=== PATIENT | female | born 1980 | race Caucasian/White ===

== ENCOUNTER 2017-03-26 19:28 | Inpatient (IN) ==
[2017-03-26] MEDS ORDERED: Naloxone 0.4 MG/ML INJ IVP PRN (23:01)
[2017-03-26] MEDS ORDERED: Acetaminophen 325 MG TABLET PO PRN (23:01)
[2017-03-26] MEDS ORDERED: *HR* Morphine 2 MG/ML SYRINGE IVP PRN (23:01)
[2017-03-26] MEDS ORDERED: *HR* HYDROcodone/Acet 5/325 mg TABLET PO PRN (23:01)
[2017-03-26] MEDS ORDERED: Heparin 25,000 UNIT/500 ML D5W 25,000 UNIT/500 ML MLS IVC SCH (23:45)
[2017-03-26] MEDS ORDERED: Nitroglycerin 25 MG/250 ML INFUS..BTL IVC SCH (23:45)
[2017-03-26] MEDS ORDERED: *HR* Heparin 5,000 UNIT/ML VIAL IVP PRN ×2 (23:51)
[2017-03-26] MEDS ORDERED: *HR* Heparin 5,000 UNIT/ML VIAL IVP ONE (23:51)
[2017-03-27] MEDS: *HR* Promethazine 25 MG/ML VIAL IVP PRN ×2 (02:01→10:13)
[2017-03-27] MEDS ORDERED: *HR* LORazepam 2 MG/ML VIAL IVP ONE (02:34)
[2017-03-27 03:15] LABS: Activated Partial Thrombo Time 26.1 Seconds (26.0-36.0); Prothrombin Time 10.3 Seconds (9.4-12.1)
[2017-03-27 03:16] LABS: Hematocrit 33.7 % (35.3-44.9); Immature Platelets 23.3 % (1.1-6.1); Mean Corpuscular HGB Conc 32.6 g/dL (31.6-35.5); Mean Corpuscular Hemoglobin 25.9 pg (28.0-33.3); Mean Corpuscular Volume 79.3 fL (83.0-100.0); Mean Platelet Volume 13.7 fL (9.4-12.4); Red Blood Count 4.25 M/mcL (3.82-4.97); Red Cell Distribution Width 15.1 % (11.5-14.5)
--- NOTE | 2017-03-27 04:48 | Internal Med History&Physical ---
Date of Encounter: 03/27/17 Time of Encounter: 04:46 Assessment and Plan (1) Accelerated hypertension Current visit: Yes Status: Acute Patient has significant hypertension. Likely related to being out of her medicines medications. She is having some headaches. There are no acute neurologic deficits. We will put the patient on nitro drip and titrate it to achieve better blood pressure control. Patient is unsure what medicines she takes for blood pressure. Pharmacy will need to be contacted for a complete medical list. (2) Non-STEMI (non-ST elevated myocardial infarction) Current visit: Yes Status: Acute Mild elevation in troponin, likely due to hypertension. Patient does have significant lower extremity edema and there is a concern for myocardial ischemia. We will obtain an echo. Patient is in place on heparin drip. Patient is allergic to aspirin. We will start statin. (3) Anxiety Current visit: Yes Status: Acute Patient reports significant anxiety. This may be contributing to her chest pain symptoms. We will treat with Ativan 1 mg IV every 4. (4) Type 2 diabetes mellitus Current visit: Yes Status: Acute Patient reports insulin-dependent diabetes. Most recent hemoglobin A1c was 7.1 on February 24. Patient is unsure of her insulin regimen. Given that the patient is nothing by mouth we will hold off on any insulin at this time until we were able to confirm her insulin doses with the pharmacy. Qualifiers: Diabetes mellitus complication status: with hyperglycemia Diabetes mellitus prison insulin use: with prison use Qualified Code(s): E11.65 - Type 2 diabetes mellitus with hyperglycemia; Z79.4 - supervisor intermediates (current) use of insulin (5) DVT prophylaxis Current visit: Yes Status: Acute Patient is currently on a heparin drip Internal Medicine - H&P: HPI Chief complaint: Chest Pain Admitted From: Emergency Dept Plans for Post Hospital Care: Home History of present illness: Ms. Lopez is a 37 year old female with history of hypertension who presents with chest pain. Patient states her chest pain started today. Patient describes the pain like a "punched in the chest". She states her chest pain is exacerbated by anxiety and stress which she has been under a lot of recently. Her chest pain does not radiate. She has had similar symptoms a few years ago and she is at [facility]. She had a heart cath at that time which was normal. She also reports occasional shortness of breath. Shortness of breath does not appear to be associated with her chest pain. Patient also reports significant lower extremity edema that has developed over the last several weeks. Patient reports an extensive positive review of systems including reporting fever, chills, cough, nausea, vomiting, diarrhea, hematemesis, hemoptysis, abdominal pain, dysuria. Past Med Surg Social Fam HX - Past Medical History Medical history: diabetes, hypertension Psychiatric history: anxiety, depression - Past Surgical History Surgical History: , other - Social History Smoking Status: Former smoker Smokeless Tobacco Status: No Alcohol use: none Drug use: none - Family History Father Living Status: Still Living Hx Family Cardiac Disorders: Yes (htn) Hx Family Respiratory Disorders: Yes (Copd) Hx Family Cancer: Yes Hx Family GI Disorders: No Hx Family Genitourinary Disorders: No Hx Family Endocrine Disorder: Yes (DM) Hx Family Musculoskeletal Disorders: No Hx Family Neuromuscular Disorders: No Hx Family Neurologic Disorders: No Hx Family HEENT Disorders: No Hx Family Autoimmune Disorders: No Hx Family Reproductive Disorders: No Hx Family Psychosocial Disorders: No Hx Family Medical Disorders: No Mother Living Status: Hx Family Cardiac Disorders: Yes Hx Family Respiratory Disorders: Yes Hx Family Cancer: No Hx Family GI Disorders: No Hx Family Genitourinary Disorders: No Hx Family Endocrine Disorder: Yes Hx Family Musculoskeletal Disorders: No Hx Family Neuromuscular Disorders: No Hx Family Neurologic Disorders: No Hx Family HEENT Disorders: No Hx Family Autoimmune Disorders: No Hx Family Reproductive Disorders: No Hx Family Psychosocial Disorders: No Hx Family Medical Disorders: No Sister Living Status: Still Living Hx Family Cardiac Disorders: No Hx Family Respiratory Disorders: Yes (copd) Hx Family Cancer: No Hx Family GI Disorders: No Hx Family Genitourinary Disorders: No Hx Family Endocrine Disorder: Yes Hx Family Musculoskeletal Disorders: No Hx Family Neuromuscular Disorders: No Hx Family Neurologic Disorders: No Hx Family HEENT Disorders: No Hx Family Autoimmune Disorders: No Hx Family Reproductive Disorders: No Hx Family Psychosocial Disorders: No Hx Family Medical Disorders: No Internal Medicine - H&P: Meds No Known Home Drugs 03/21/17 [History] Allergies aspirin [ASA] Allergy (Verified 03/12/17 21:11) Rash All Systems PM: A 10-system review of systems was performed and is negative for pertinent findings except as documented above in the HPI. - Constitutional Constitutional: chills, fever(s), weakness - EENT Eyes: blurry vision Nose, mouth and throat: sinus pain, sinus pressure, sore throat - Cardiovascular Cardiovascular ROS IM: chest pain, dyspnea, edema, syncope, no palpitations - Respiratory Respiratory: cough, dyspnea, hemoptysis, chest congestion, excessive phlegm production, change in phlegm color - Gastrointestinal Gastrointestinal: abdominal pain, diarrhea, hematemesis, nausea, vomiting - Genitourinary Genitourinary: dysuria, no urinary frequency, no urinary hesitancy, no urinary incontinence, no urinary urgency - Musculoskeletal Musculoskeletal ROS IM: numbness, tingling - Neurological Neurological ROS: weakness, no dizziness - Psychiatric Psychiatric: anxiety, panic attacks - Hematologic/Lymphatic Hematologic/Lymphatic: no easy bleeding, no easy bruising - Constitutional Vitals: Temp Pulse Resp BP Pulse Ox 97.7 F 97 20 190/118 99 03/26/17 22:30 03/26/17 22:30 03/26/17 22:30 03/26/17 22:30 03/26/17 22:30 General appearance: Present: A&O X 3, morbidly obese, no acute distress - Head Head exam: Present: atraumatic, normal inspection, normocephalic - Eye Eye exam: Present: EOMI, PERRL - ENT ENT exam: Present: mucous membranes moist, normal oropharynx - Respiratory Respiratory exam: Present: CTAB. Absent: rales, rhonchi, wheezes - Cardiovascular Cardiovascular exam: Present: RRR. Absent: gallop, JVD, rubs, systolic murmur - GI/Abdominal GI/Abdominal exam: Present: normal bowel sounds, soft. Absent: distended, tenderness - Extremities Exam Extremities exam: Present: calf tenderness, pedal edema (2+ pitting edema bilaterally.), warm. Absent: tenderness - Neurological Exam Neurological exam: Present: alert, CN II-XII intact, oriented X3, no focal deficits - Psychiatric Psychiatric exam: Present: anxious Internal Med - H&P Results - Labs CBC & Chem 7: 03/27/17 00:50 Labs: Short CBC 03/27/17 Range/Units 00:50 WBC 14.9 H (4.3-11.1) K/mcL Hgb 11.0 L (11.5-15.4) g/dL Hct 33.7 L (35.3-44.9) % Plt Count 152 (140-400) K/mcL Cardiac Enzymes 03/27/17 Range/Units 00:50 Troponin I 0.12 H* (0-0.03) ng/mL
[2017-03-27 06:25] LABS: BUN/Creatinine Ratio 14 (6-26); Blood Urea Nitrogen 13 mg/dL (7-20); Calcium 8.6 mg/dL (8.6-10.8); Carbon Dioxide 18 mEq/L (19-29); Chloride 109 mEq/L (98-109); Chol/HDL Ratio 5.6 (0-4.9); Cholesterol 324 mg/dL (< 200); Glucose 138 mg/dL (70-99); HDL Cholesterol 58 mg/dL (40-59); LDL Cholesterol,Calculated 186 mg/dL (0-99); Magnesium 1.8 mg/dL (1.6-2.6); Osmolality,Calculated 288 (280-300); Potassium 3.9 mEq/L (3.5-4.5); Sodium 138 mEq/L (136-145); Triglycerides 399 mg/dL (< 150); eGFR For African Americans > 60 (> 60); eGFR For Non-African Americans > 60 (> 60)
[2017-03-27] MEDS ORDERED: Pantoprazole 40 MG VIAL IVP SCH (06:30)
[2017-03-27 07:17] LABS: Basophils # 0.1 K/mcL (0.0-0.2); Basophils % 0.4 %; Eosinophils # 0.2 K/mcL (0.0-0.6); Eosinophils % 1.2 %; Hematocrit 32.7 % (35.3-44.9); Immature Granulocytes % 0.4 % (0-4); Lymphocytes # 3.2 K/mcL (0.6-4.6); Lymphocytes % 23.9 %; Mean Corpuscular HGB Conc 33.6 g/dL (31.6-35.5); Mean Corpuscular Hemoglobin 26.7 pg (28.0-33.3); Mean Corpuscular Volume 79.4 fL (83.0-100.0); Mean Platelet Volume 14.2 fL (9.4-12.4); Monocytes # 0.7 K/mcL (0.0-1.3); Monocytes % 5.1 %; Neutrophils # 9.3 K/mcL (1.6-8.9); Platelet Count 147 K/mcL (140-400); Red Blood Count 4.12 M/mcL (3.82-4.97); Red Cell Distribution Width 15.1 % (11.5-14.5)
[2017-03-27] MEDS ORDERED: niCARdipine 40 MG/200 ML MLS IVC SCH ×2 (09:00→11:12)
[2017-03-27] MEDS ORDERED: Ondansetron 4 MG/2 ML VIAL ONE (09:39)
[2017-03-27] MEDS ORDERED: Ondansetron 4 MG/2 ML VIAL IVP PRN ×2 (09:39→11:12)
[2017-03-27] MEDS ORDERED: *HR* HYDROcodone/Acet 5/325 mg TABLET PO PRN (11:12)
[2017-03-27] MEDS ORDERED: Acetaminophen 325 MG TABLET PO PRN (11:12)
[2017-03-27] MEDS ORDERED: Naloxone 0.4 MG/ML INJ IVP PRN (11:12)
[2017-03-27] MEDS ORDERED: *HR* Morphine 2 MG/ML SYRINGE IVP PRN (11:12)
[2017-03-27] MEDS ORDERED: *HR* Promethazine 25 MG/ML VIAL IVP PRN (11:12)
[2017-03-27] MEDS ORDERED: Heparin 25,000 UNIT/500 ML D5W 25,000 UNIT/500 ML MLS IVC SCH (11:12)
[2017-03-27] MEDS ORDERED: *HR* Heparin 5,000 UNIT/ML VIAL IVP PRN ×2 (11:12)
--- NOTE | 2017-03-27 12:16 | ECHO - Doppler Report ---
Echocardiogram Name: Dali Lopez Date of Study: 03/27/2017 Date: 1980 Ht: 66.0 in Medical Record#: [id number] Age: 37 Wt: 309.0 lb Gender: Female BSA: 2.41 Order #: [id number] Location: [facility] Room #: 2N05 Reading Physician: Eleanor Wright DO Measurer Machine: Omar Atkinson RN Ordering Physician: Jerald White DO Primary Physician: Vanita Castrejon CNP Indications: Chest pain Impressions: Sinus tachycardia. LVEF 60-65%. Indeterminate left ventricular diastolic function. Moderate LV asymmetrical septal hypertrophy. No LV outflow obstruction. Normal right ventricular size and function. Mild mitral regurgitation. No pulmonary hypertension. Left Ventricular Wall Motion: Rest Echo Findings All wall segments showed normal motion. Findings: Study Quality * Technically sub-optimal due to body habitus. ECG Findings * Sinus tachycardia. Left Ventricle * Indeterminate diastolic function. * LVEF 60-65%. * Moderate asymmetric septal hypertrophy. No LVOTO. Mitral Valve * Normal mitral valve structure. * No mitral stenosis. * Mild mitral regurgitation. Aortic Valve * Aortic valve not well visualized. * No aortic stenosis. * Trace aortic regurgitation. Tricuspid Valve * Tricuspid valve not well visualized. * No tricuspid regurgitation. * Estimated RA pressure is 3 mmHg. * Estimated RVSP is 10 mmHg. * No pulmonary hypertension. Pulmonic Valve * Pulmonic valve is not well visualized. * No pulmonic stenosis. * No pulmonic regurgitation. Pulmonary Artery * Pulmonary artery not well visualized. Right Atrium * Normal right atrial size. Pericardium * There is no pericardial effusion present. Aorta * Not well evaluated. Left Atrium * Moderately dilated left atrium. Right Ventricle * Normal right ventricular structure and function. Interatrial Septum * No evidence of PFO by color Doppler. IVC * Normal IVC dimensions and inspiratory collapse. History Measurements: BP: 182/ 109 2D Normal Values RVIDd: 2.20 cm <2.7 cm IVSd: 1.50 cm 0.6 - 1.0 cm LVIDd: 3.80 cm 3.7 - 5.6 cm LVPWd: 2.10 cm 0.6 - 1.1 cm LVIDs: 2.70 cm 1.5 - 3.6 cm LA: 4.30 cm 2.0 - 4.0cm %FS: 28.90 cm >25 % LVOT Diam: 2.00 cm LA volume: 108 Mitral Valve Peak E:.97 m/sec Peak A:1.15 m/sec E/A Ratio:0.8 Peak E' Lat Monty:14.5 cm/s Peak E' Med Monty:8.19 cm/s E/E' Lat Ratio:6.7 E/E' Med Ratio:11.8 Aortic Valve AI pressure Half-time: 395.00 msec Tricuspid Valve TV Regurg Peak Grad: 7.00mmHg TV Regurg Peak Monty: 1.29m/sec Updated by Eleanor Wright on 03/27/2017 12:08:55 PM electronically signed on 03/27/2017 12:10:10 PM with status of Final Wall Motion Mckoy: 1=Normal, 2=Hypokinesis, 3=Akinesis, 4=Dyskinesis, 5=Aneurysmal, 6=Hyperkinetic, X=Not Visualized (Blank)=Missing
[2017-03-27 12:50] VITALS: BP 167/101
[2017-03-27] MEDS ORDERED: Magnesium Sulfate 2 GM/100 ML PIGGYBACK IV SCH (14:19)
[2017-03-27 14:21] LABS: Bilirubin,Urine Small (Negative); Blood,Urine Trace (Negative); Clarity,Urine Cloudy (Clear); Color,Urine Dark Yellow (Yellow); Glucose,Urine (UA) 100 mg/dL (Normal); Ketones,Urine 15 mg/dL (Negative); Leukocyte Esterase,Urine Negative (Negative); Nitrite,Urine Negative (Negative); PH,Urine 5.5 pH Units (5.0-8.0); Protein,Urine >=1000 mg/dL (Neg-Trace); Specific Gravity,Urine > 1.030 (1.010-1.025); Urobilinogen,Urine Normal (Normal)
[2017-03-27 14:22] LABS: Bacteria,Urine Few per hpf (None-Few); Hyaline Casts,Urine Few per lpf (None-Few); Squamous Epithelial Cell,Urine Many per lpf (None-Few); WBC,Urine 30-50 per hpf (0-3)
[2017-03-27] MEDS ORDERED: Magnesium Sulfate 2 GM in D5% in Water 100 ML IVPB SCH (14:45)
[2017-03-27] MEDS ORDERED: *HR* Labetalol 20 MG/4 ML SYRINGE IVP ONE (15:35)
[2017-03-27] MEDS: *HR* Labetalol 20 MG/4 ML SYRINGE IVP STA ×2 (15:38→15:48)
[2017-03-27] MEDS ORDERED: Calcium Gluconate 2,000 MG in D5% in Water 100 ML IVPB ONE (15:45)
[2017-03-27] MEDS ORDERED: NIFEdipine 10 MG CAPSULE PO ONE (15:53)
[2017-03-27 15:57] LABS: Prothrombin Time 10.7 Seconds (9.4-12.1)
[2017-03-27] MEDS ORDERED: Betamethasone Acet/SodPhos 6 MG/ML MDV IM SCH (16:00)
[2017-03-27] MEDS ORDERED: NIFEdipine 10 MG CAPSULE PO STA (16:08)
[2017-03-27 16:09] LABS: Alanine Aminotransferase 40 Units/L (0-55); Albumin 2.5 g/dL (3.5-5.0); Albumin/Globulin Ratio 0.6 (1.1-2.2); Alkaline Phosphatase 136 Units/L (38-126); Aspartate Amino Transferase 45 Units/L (5-34); BUN/Creatinine Ratio 13 (6-26); Bilirubin,Total 0.9 mg/dL (0.2-1.2); Blood Urea Nitrogen 13 mg/dL (7-20); Calcium 9.1 mg/dL (8.6-10.8); Carbon Dioxide 20 mEq/L (19-29); Chloride 106 mEq/L (98-109); Globulin 4.5 g/dL (2.4-3.5); Glucose 225 mg/dL (70-99); Osmolality,Calculated 291 (280-300); Potassium 4.2 mEq/L (3.5-4.5); Sodium 137 mEq/L (136-145); eGFR For African Americans > 60 (> 60); eGFR For Non-African Americans 59 (> 60)
[2017-03-27] MEDS ORDERED: Magnesium Sulfate 20 gm/500mL 20 GM/500 ML IV.SOLN IV ONE (16:15)
[2017-03-27] MEDS ORDERED: Ringers Solution, Lactated 1,000 ML ONE (16:20)
--- NOTE | 2017-03-27 16:27 | Discharge Summary ---
<Carol,Sam Estrada - Last Filed: 03/27/17 16:38> Date of Encounter: 03/27/17 Time of Encounter: 16:07 - Discharge Diagnosis (1) Pre-eclampsia Priority: Primary Status: Acute Qualifiers: Trimester: third trimester Qualified Code(s): O14.93 - Unspecified pre- eclampsia, third trimester (2) Priority: Secondary Status: Acute Qualifiers: Weeks of gestation: 32 weeks Qualified Code(s): Z3A.32 - 32 weeks gestation of (3) Leg edema Priority: Secondary Status: Acute Qualifiers: Laterality: bilateral Qualified Code(s): R60.0 - Localized edema (4) Non-STEMI (non-ST elevated myocardial infarction) Priority: Secondary Status: Ruled-out (5) Type 2 diabetes mellitus Priority: Secondary Status: Chronic Qualifiers: Diabetes mellitus complication status: with hyperglycemia Diabetes mellitus long term care social worker insulin use: with long term care social worker use Qualified Code(s): E11.65 - Type 2 diabetes mellitus with hyperglycemia; Z79.4 - exterminator (current) use of insulin - Discharge Medications Home Medications: Insulin Glargine [Lantus] 20 unit SQ HS 03/27/17 [History] Insulin LISPRO [Humalog Kwikpen U-100] 20 unit SQ BID 03/27/17 [History] Allergies/Adverse Reactions: Allergies aspirin [ASA] Allergy (Verified 03/12/17 21:11) Rash Procedures/tests Complete & Pending: Procedures Performed prior 72 hours Category Date Time Status US uterus preg>14wks sg [US] Stat Exams 03/27/17 15:16 Ordered ECG 12 lead ECG [ECG] Stat Y 03/26/17 23:01 Completed EV echocardiogram Routine Y 03/27/17 23:09 Completed Date of admission: 03/27/17 03:19 Primary care physician: Vanita Castrejon CNP Consults: 03/27/17 09:35 Consult to Sightseeing Guide [CONS] Routine Reason for SW Consult: Possible Care Star referral 03/27/17 15:20 Consult to PATIENT OFFICE REP [CONS] Stat Consulting Provider: BONE COOKING OPERATOR Shanti Reason for Consult: newly identified in third trimester with no care Call Completed: No Discharging clinician: Sam Medina Anticipated date of discharge: 03/27/17 - Patient Status Disposition: Transfer Critical Access Hosp Condition: Critical Functional capacity at discharge: bed bound Overall status at discharge: patient is not back to baseline - Discharge Instructions Instructions: Myocardial Infarction (DC), Diabetes Mellitus Type 2 in Adults ( DC), Chronic Hypertension (DC) Follow Up With: Vanita Castrejon CNP [Primary Care Provider] - Hospital course: Ms. Lopez is a 37 year old female with history of pre-eclampsia, HELLP syndrome , diabetes mellitus, headaches obesity presented with chief complaint of lower extremity edema at [facility]. At [facility] patient stated that she has been having nausea, vomiting, shortness of breath, chest pain, constipation. Patient took laxatives outpatient and had a small bowel movement 2 days ago. Urine was negative. She has a history of a left heart catheterization at [facility] that was normal. Patient was transferred to [facility] after being found to be hypertensive with systolic blood pressure 235 and elevated troponins of 0.04. Patient's EKG showed T-wave inversions in leads 1 and aVL. She had a d-dimer of [address] does not negative for pulmonary embolism and a chest x-ray that showed no acute cardiopulmonary abnormality. She was started on a heparin drip aspirin and Plavix. Patient was transferred to [place] for hypertensive emergency and NSTEMI. Patient arrived at [place] and was started on a nitroglycerin drip which was maxed out however she remained hypertensive with systolic of 200. Patient's hemoglobin remained stable between 11 and 12. Platelets were 182 and then 152 on repeat CBC. AST was 45 and ALT was 40. Patient's troponins peaked at 0.14 and then decreased to 0.12. Cholesterol level was 324 with LDL of 186. Urine showed significant proteinuria greater than 1000. Serum creatinine was 1.04. Patient complained of a headache in the morning and had vomiting of billiary content. She stated she had not had a bowel movement since December. She was started on Cardene drip and transferred to [facility] (ICU step down unit). Her blood pressure was tritrated down to 180/100 successfully. And a KUB was obtained for evaluation of constipation. KUB showed evidence of fetus. Beta hCG was obtained and was [id number]. At this point heparin, a Cardene drip were discontinued. Patient was started on magnesium at 4 g an hour. BONE COOKING OPERATOR was consulted. Patient's belly measured 32 cm. Heartbeat was obtained the ultrasound. Patient is put on a heart monitor. She was given betamethasone and Procardia and transferred to [facility] for further care via helicopter. Patient has history of 2 pregnancies with first reported and second patient had a at 27 weeks due to pre-eclampsia and HELLP syndrome. And offspring at 3 days. Patient states that she has 2 partners in the past. She is sexually active. She has history of irregular bleeding. She had spotting 2 days ago. She is currently on control norethindrone- eth estradiol. - Time Spent with Patient Total time spent providing and/or coordinating discharge services: - Constitutional Vitals: Temp Pulse Resp BP Pulse Ox 97.8 F 110 28 167/101 97 03/27/17 10:53 03/27/17 12:48 03/27/17 12:48 03/27/17 12:48 03/27/17 12:48 General appearance: Present: A&O X 3, morbidly obese, no acute distress - Head Head exam: Present: atraumatic, normocephalic - Eye Eye exam: Present: PERRL, conjuntiva pink, sclera anicteric Pupils: Present: PERRL - Neck Neck exam general surgery: Present: supple, trachea midline. Absent: lymphadenopathy - Respiratory Respiratory exam: Present: CTAB. Absent: accessory muscle use, rales, rhonchi, wheezes - Cardiovascular Cardiovascular exam: Present: +S1, +S2, tachycardia. Absent: diastolic murmur, gallop, rubs, systolic murmur - GI/Abdominal GI/Abdominal exam: Present: distended, hypoactive bowel sounds, soft. Absent: tenderness - External exam: Absent: ecchymosis, lacerations, lesions, normal external exam Specululm exam: Absent: vaginal discharge Additional comments: Uterine size: 32cm - Extremities Exam Extremities exam: Present: normal capillary refill, pedal edema (2+), radial pulses palpable and symetrical. Absent: calf tenderness - Neurological Exam Neurological exam: Present: CN II-XII intact, oriented X3, no focal deficits. Absent: pronater drift, facial droop, speech deficit - Skin Skin exam: Present: dry, intact <Jonatan Garrison - Last Filed: 03/28/17 17:07> Date of Encounter: 03/27/17 - Discharge Diagnosis (1) Pre-eclampsia Status: Acute Qualifiers: Trimester: third trimester Qualified Code(s): O14.93 - Unspecified pre- eclampsia, third trimester (2) Status: Acute Qualifiers: Weeks of gestation: 32 weeks Qualified Code(s): Z3A.32 - 32 weeks gestation of (3) Type 2 diabetes mellitus Status: Chronic Qualifiers: Diabetes mellitus complication status: with hyperglycemia Diabetes mellitus long term care social worker insulin use: with long term care social worker use Qualified Code(s): E11.65 - Type 2 diabetes mellitus with hyperglycemia; Z79.4 - exterminator (current) use of insulin Procedures/tests Complete & Pending: Procedures Performed prior 72 hours Category Date Time Status US uterus preg>14wks sg [US] Stat Exams 03/27/17 15:16 Completed ECG 12 lead ECG [ECG] Stat Y 03/26/17 23:01 Completed EV echocardiogram Routine Y 03/27/17 23:09 Completed Date of admission: 03/27/17 03:19 Primary care physician: Vanita Castrejon CNP Consults: 03/27/17 09:35 Consult to Sightseeing Guide [CONS] Routine Reason for SW Consult: Possible Care Star referral 03/27/17 15:20 Consult to PATIENT OFFICE REP [CONS] Stat Consulting Provider: BONE COOKING OPERATOR Shanti Reason for Consult: newly identified in third trimester with no care Call Completed: No Hospital course: Ms. Lopez is a 37 year old female - Time Spent with Patient Total time spent providing and/or coordinating discharge services: 75min - Constitutional Vitals: Temp Pulse Resp BP Pulse Ox 97.8 F 110 28 167/101 97 03/27/17 10:53 03/27/17 12:48 03/27/17 12:48 03/27/17 12:48 03/27/17 12:48 - Attending Attestation I examined this patient and my medical decision-making was reviewed with the Resident Physician on 03/27/17. I agree with the documented findings, disposition and treatment plan as described except to the extent set forth below. Ms. Lopez was admitted for acute hypertensive emergency and elevated troponin. She was admitted to [facility] on nitro drip. Ms. Lopez was still markedly hypertensive on nitro and moved to for IV Cardene. She was vomiting intermittently and had edema on exam. She complained of headache. She stated she had not had BM since December. KUB ordered and skeleton visualized. Urine test at [facility] on admit was recorded as negative. Ms. Lopez remained hypertensive. She was tachycardic on exam and lungs clear. Abd nontender. OB called and came to the floor. Pt had preeclampsia and started on IV Magnesium. Arrangements were made to transfer to [facility]. She was taken by helicopter in stable condition.
[2017-03-27] MEDS ORDERED: *HR* Magnesium Sulfate 2 GM/50 ML PIGGYBACK IVPB ONE (17:24)
--- NOTE | 2017-03-27 17:55 | Event Note ---
Date of Encounter: 03/27/17 Time of Encounter: 15:00 Consult completed on Ms Dali Lopez who was admitted and worked up for severe hypertension elevation. She was seen in the [place] ED yesterday and was then transferred to [facility]. I was told that she had a test completed in [place] which was negative. She then had a bedside KUB completed with an incidental finding of a skeleton. She was on a carvedilol drip for her hypertension which was turned off upon the findings. When this CNM arrived at the bedside, Magnesium sulfate was infusing intravenously at 1gram/her and her blood pressures were running 190's-200's/100' s-110's. She was asymptomatic. heart tones were located via doppler at 140. NST started - 130's-140's with minimal variability and occasional variable decel; no contractions palpated or on TOCO. LFTs, Coags, and Viability /Dating ultrasound pending. History LMP 2 days ago, spotting for 6 weeks PMH HTN, DM, Asthma, hypothyroidism PSH C/S x1 2011 Tonsilectomy in childhood Allergies Vistaril and Aspirin Home medications: Levothyroxin, KCl, Lisinopril, Lovastatin, Carvedilol, HCTZ, Buspar, Celexa, and Control Pills. Patient has not had any home meds since January OB History Pre-eclampsia/HELLP with in 2011 delivery 2011 - due to Pre-E, passed at 5 days old Assessment/Plan Consulted [facility] for high risk status and transfer Severe Pre-eclampsia Bolus 4 gram Magnesium sulfate followed by [address] Urinary Martinez Catheter 20 mg labetalol IVP once Procardia 10mg PO once Transfer to [facility] when stable due to high risk status 31 week gestation Betamethasone 12mg IM once No care Previous Section [facility] accepted patient; transferred to [facility] by helicopter.
--- NOTE | 2017-03-27 18:45 | Electrocardiograph Report ---
[place] [id number] Test Date: 2017-03-26 Pat Name: Dali Lopez Department: 111 Room: 2N05 Gender: F Manager Social Responsibility: MELY : 1980 Requested By: Jerald White Order Number: [id number] Reading MD: Anthony Braden MD Measurements Intervals [place] Rate: 77 P: 48 OK: 124 QRS: 10 QRSD: 86 T: 119 QT: 412 QTc: 444 Interpretive Statements SINUS RHYTHM LEFT VENTRICULAR HYPERTROPHY Electronically Signed On 03-27-2017 18:44:18 EDT by Anthony Braden MD
[2017-03-28] MEDS ORDERED: Pantoprazole 40 MG VIAL IVP SCH (06:30)
== END 2017-03-27 17:25 | disposition critical access hospital (66) | DRG 781 ==
LOC: 2NENU → 2NNU 03-27 10:28
PROVIDERS: ADMIT Internal Medicine; ATTEND Internal Medicine